=== PATIENT | female | born 1960 | race African-American/Black ===

== ENCOUNTER → 2017-04-20 | Emergency (ER) | payer SELFPAY ==
[~2017-04-20] VITALS: Ht 162.6 cm; Wt 99.8 kg
[~2017-04-20] MED LIST: ASPIRIN81 MG PO; KETOROLAC TROMETHAMINE 60 MG/2 ML VIAL IM ONE; LISINOPRIL-HCT1 EACH PO; PRAVASTATIN SOD10 MG PO; SERTRALINE HCL50 MG PO; ZONISAMIDE100 MG PO
== END | disposition home or self-care (01) ==
LOC: ER 14:12
DX: S43.422A Sprain of left rotator cuff capsule, initial encounter (principal); Y92.39 Other specified sports and athletic area as the place of occurrence of the external cause
CPT/HCPCS: 99282; J1885

== ENCOUNTER 2017-12-28 23:25 | Emergency (ER) | payer OTHER ==
[~2017-12-28] VITALS: Ht 162.6 cm; Wt 99.8 kg
[~2017-12-28 23:25] MED LIST changes: -KETOROLAC TROMETHAMINE 60 MG/2 ML VIAL IM ONE
[2017-12-29] MEDS ORDERED: KETOROLAC TROMETHAMINE 60 MG/2 ML VIAL ONE (01:09)
[2017-12-29] MEDS ORDERED: KETOROLAC TROMETHAMINE 60 MG/2 ML VIAL IM ONE (01:15)
--- OUTSIDE RECORDS SUMMARY | 2018-01-06 11:51 | XMS REPORT | Summary of Care ---
Author Organization Unknown Address Unknown Phone Unavailable Encounter HQ Santiagontr_jenaro(CHRISTY) [id number] Date(s): 11/30/13 - 12/29/13 [facility] Discharge Disposition: Home Physician Attending: Allyson Mustafa MD Reason for Visit RT HAND PAIN/724.3 LT UPPER THIGH PAIN Problem List No data available for this section Allergies, Adverse Reactions, Alerts Substance Reaction Severity Status NKDA Active Medications No data available for this section Medications Administered During Your Visit No data available for this section Immunizations No data available for this section
--- OUTSIDE RECORDS SUMMARY | 2018-01-06 11:52 | XMS REPORT | Summary of Care ---
Author Author [facility] [place] [facility] Organization [facility] [place] [facility] Address Unknown Phone Unavailable Encounter HQ Encntr_alias(FIN) [id number] Date(s): 01/16/16 - 01/16/16 [facility] [place] [facility] [address] [place] [address], [address] [place] [address]- [place] [phone] Discharge Disposition: Home or Self Care Attending Physician: Lashell Houston MD Vital Signs No data available for this section Problem List No data available for this section Allergies, Adverse Reactions, Alerts Substance Reaction Severity Status NKDA Active Medications No data available for this section Results No data available for this section Immunizations No data available for this section Procedures No data available for this section Social History No data available for this section Assessment and Plan No data available for this section
--- OUTSIDE RECORDS SUMMARY | 2018-01-06 11:52 | XMS REPORT ---
Author Author [facility] Address Unknown Phone Unavailable Care Team Providers Care Rn Referral Name Role Phone Dariana MORALES Unavailable Unavailable Trevon APARICIO Unavailable Unavailable Problems This patient has no known problems. Allergies, Adverse Reactions, Alerts This patient has no known allergies or adverse reactions. Medications This patient has no known medications. Results Test Description Test Time Test Comments Text Results Atomic Results Result Comments CT BRAIN WO [place] [address] Patient Name: PRAKASH DELUCA MR #: [id number] : 1960 Age/Sex: 56/F Req #: [id number] Adm Physician: Ordered by: CLEMENTINE MORALES MD Report #: [id number] Location: ER Room/Bed: Procedure: [id number] CT/CT BRAIN WO Exam Date: Exam Time: REPORT STATUS: Signed History: Headache Comparison studies: None Technique: Axial images were obtained from the skull base to the vertex. Coronal and sagittal reconstructions obtained from the axial data. Findings: Scalp/skull: No abnormalities. No fractures, blastic or lytic lesions. Extra-axial spaces: No masses. No fluid collections. Brain sulci: Appropriate for age. Ventricles: Normal in size and configuration. No hydrocephalus. Parenchyma: No abnormal densities. No masses, hemorrhage, acute or chronic cortical vascular insults. Sellar/suprasellar region: No abnormalities Craniocervical junction: Patent foramen magnum. No Chiari one malformation. IMPRESSION: No abnormalities. Signed by: Dr. Rashad Alexander M.D. on 01/05/2017 6:06 PM Dictated By: RASHAD ALEXANDER MD, MD Elect ronically Signed By: RASHAD ALEXANDER MD, MD on 01/05/171805 Transcribed By: DAMIAN on 01/05/171805 COPY TO: CLEMENTINE MORALES MD SHOULDER LEFT COMPLETE [place] [address] Patient Name: PRAKASH DELUCA MR #: [id number] : 1960 Age/Sex: 56/F Req #: [id number] Adm Physician: Ordered by: SHERIDAN APARICIO MD Report #: [id number] Location: ER Room/Bed: Procedure: [id number] DX/SHOULDER LEFT COMPLETE Exam Date: 12/08/16 Exam Time: 0125 REPORT STATUS: Signed EXAM: SHOULDER LEFT COMPLETE, AP internal and external rotational view DATE: 12/08/2016 12:58 AM Time stamp on Exam: 0111 hours INDICATION: Left shoulder pain COMPARISON: None FINDINGS: BONES: No acute fractures. No lytic or blastic lesions. Calcification adjacent to the posterior superior aspect of the humeral head. JOINTS: The joints are well-maintained and without erosive changes. No malalignment. SOFT TISSUES: Normal IMPRESSION: No left shoulder fracture or dislocation. Calcific tendinopathy. Signed by: Dr. Nano Bentley M.D. on 12/08/2016 1:46 AM Dictated By: NANO BENTLEY MD 5 Transcribed By: DAMIAN on 12/08/16145 COPY TO: SHERIDAN APARICIO MD
--- OUTSIDE RECORDS SUMMARY | 2018-01-06 11:52 | XMS REPORT | Summary of Care ---
Author Author OPAL Cassidy, OMAR Organization Unknown Address Unknown Phone Unavailable Care Team Providers Care Manager Animation Name Role Phone OPAL Cassidy, OMAR Unavailable Unavailable Omar Joseph MD Unavailable Unavailable Unavailable Unavailable Functional Status Name Dates Details Functional status health issues are not documented Status: Name Dates Details Cognitive status health issues are not documented Status: Problems Name Dates Details Back Pain Status: Active Headache (784.0, R51) Status: Active Snoring (786.09, R06.83) Status: Active Backache (724.5, M54.9) Status: Active Cerebral thrombosis with cerebral infarction (434.01, I63.30) Status: Active Meralgia paresthetica of left side (355.1, G57.12) Status: Active Sciatica (724.3, M54.30) Status: Active Neuralgia (729.2, M79.2) Status: Active Cyst of left breast (610.0, N60.02) Status: Active Medication refill (V68.1, Z76.0) Status: Active Breast cyst (610.0, N60.09) Status: Active Perimenopausal (627.2, N95.1) Status: Active Atypical chest pain (786.59, R07.89) Status: Active Pleuritic chest pain (786.52, R07.81) Status: Active Pain, hip (719.45, M25.559) Status: Active Upper respiratory infection, acute (465.9, J06.9) Status: Active Normal routine physical examination (V70.0, Z00.00) Status: Active Need for Tdap vaccination (V06.1, Z23) Status: Active Colon cancer screening (V76.51, Z12.11) Status: Active Arm pain, anterior, right (729.5, M79.601) Status: Active Alterations of sensations (782.0, R20.9) Status: Active Primary hypertension (401.9, I10) Status: Active Dyslipidemia (272.4, E78.5) Status: Active Neck pain (723.1, M54.2) Status: Active Essential hypertension (401.9, I10) Status: Active Encounter for routine gynecological examination with Papanicolaou smear of cervix (V72.31, Z01.419) Status: Active Acute bronchitis (466.0, J20.9) Status: Active Hot flashes (782.62, R23.2) Status: Active Anxiety (300.00, F41.9) Status: Active Stroke syndrome Status: Active Medications Name Dates Details Aspirin 81 MG TABS TAKE 1 TABLET DAILY. R.N. Active Pravastatin Sodium 10 MG Oral Tablet TAKE 1 TABLET BY MOUTH EVERY NIGHT AT BEDTIME * Quantity: 30 Refills: 0 OPAL Balderas.OMAR Gupta * Start : 27-Oct-2017 Active Sertraline HCl - 50 MG Oral Tablet TAKE 1 TABLET BY MOUTH ONCE DAILY * Quantity: 30 Refills: 0 OPAL Balderas.D., OMAR * Start : 27-Oct-2017 Active Lisinopril-Hydrochlorothiazide 20-12.5 MG Oral Tablet TAKE 1 TABLET BY MOUTH ONCE DAILY * Quantity: 30 Refills: 0 OPAL Balderas.Candy, OMAR * Start : 27-Oct-2017 Active Ibuprofen 800 MG Oral Tablet TAKE 1 TABLET EVERY 6 HOURS PRN * Refills: 0 R.N. * Start : 13-Nov-2016 Active Allergies and Adverse Reactions Name Dates Details No Known Allergies (Allergy) Status: Active Past Medical History Name Dates Details History of Anxiety (300.00, F41.9) Status: Resolved History of Common migraine without aura (346.10, G43.009) Status: Resolved History of essential hypertension (V12.59, Z86.79) Status: Resolved History of stroke (V12.54, Z86.73) Status: Resolved Procedures Procedure Dates Details History of Biopsy Breast Percutaneous Needle Core Completed History of Complete Colonoscopy Completed Immunization Name Dates Details Tdap (Adacel) Lot #: [id number] on: 07-Apr-2015 Family History Name Dates Details Family history of Hypertension (V17.49) Comments: Family History Status: Active Name Dates Details Family history of diabetes mellitus (V18.0, Z83.3) Status: Active Name Dates Details Family history of essential hypertension (V17.49, Z82.49) Status: Active Name Dates Details Family history of cerebrovascular accident (V17.1, Z82.3) Status: Active Name Dates Details Family history of malignant neoplasm of breast (V16.3, Z80.3) Status: Active Name Dates Details Family history of essential hypertension (V17.49, Z82.49) Status: Active Family history of type 2 diabetes mellitus (V18.0, Z83.3) Status: Active Family history of cerebrovascular accident (V17.1, Z82.3) Status: Active Social History Name Dates Details - Status: Name Dates Details Never smoker Vital Signs Date Test Result Details No Known Vitals to report Results Date Description Value Details Results not documented Plan of Care Name Dates Details Planned Observations Planned Goals not documented Interventions Provided Medication Changes* Lisinopril-Hydrochlorothiazide 20-12.5 MG Oral Tablet - Renew * Pravastatin Sodium 10 MG Oral Tablet - Renew * Sertraline HCl - 50 MG Oral Tablet - Renew Instructions Name Dates Details Instructions not documented Encounters Appointment; OMAR JOSEPH M.D. Encounter Diagnosis: Problem not documented On: 03-Nov-2015 15:15 Appointment; OMAR JOSEPH M.D. Encounter Diagnosis: Problem not documented On: 12-Jan-2016 14:45 Appointment; OMAR JOSEPH M.D. Encounter Diagnosis: Problem not documented On: 15-Mar-2016 14:30 Appointment; OMAR JOSEPH M.D. Encounter Diagnosis: Problem not documented On: 13-Nov-2016 15:15
--- OUTSIDE RECORDS SUMMARY | 2018-01-06 11:52 | XMS REPORT | Summary of Care ---
Author Organization Unknown Address Unknown Phone Unavailable Encounter HQ Encntr_jenaro(CHRISTY) [id number] Date(s): 04/07/14 - 04/07/14 [facility] Outpatient Imaging [address] Discharge Disposition: Home Physician Attending: John Jacobs MD Reason for Visit 610.0 - SOLITARY CYST O Problem List No data available for this section Allergies, Adverse Reactions, Alerts Substance Reaction Severity Status NKDA Active Medications No data available for this section Medications Administered During Your Visit No data available for this section Immunizations No data available for this section
== END 2017-12-29 01:49 | disposition home or self-care (01) ==
LOC: ER 23:25
DX: M79.651 Pain in right thigh (principal); S76.111A Strain of right quadriceps muscle, fascia and tendon, initial encounter
CPT/HCPCS: 99282; J1885

== ENCOUNTER 2018-08-23 09:37 | Emergency (ER) | payer OTHER ==
[~2018-08-23] VITALS: Ht 162.6 cm; Wt 100.7 kg
--- OUTSIDE RECORDS SUMMARY | 2018-08-23 09:40 | XMS REPORT | Continuity of Care Document ---
Author Author Steve roxann Organization Interface Address Unknown Phone Unavailable Problems Problem Status Onset Date Classification Date Reported Comments Source 610.0 - SOLITARY CYST O Active 03/28/2014 [facility] 719.46 - JOINT PAIN-L/LE Active 11/18/2013 NAD[facility] Rueda RT HAND PAIN/724.3 LT UPPER THIGH PAIN Active [facility] Medications Medication Details Route Status Patient Instructions Ordering Provider Order Date Source Allergies, Adverse Reactions, Alerts Substance Category Reaction Severity Reaction type Status Date Reported Comments Source Immunizations Immunization Date Given Site Status Last Updated Comments Source Results Order Name Results Value Reference Range Date Interpretation Comments Source Spine cervical 2 or 3 view DX Spine cervical 2 or 3 view DX EXAM: XR CERVICAL SPINE 2 VIEWS DATE: 01/16/2016 2:46 PM CDT INDICATION: pain, no trauma COMPARISON: None available TECHNIQUE: AP and lateral radiographs of the cervical spine - 2 views FINDINGS: No spondylolisthesis present. Vertebral body heights are normal. No cervical spine fracture is identified. Mild degenerative disc disease present at C4-C5, C5-C6. Uncovertebral joint hypertrophy present at C4-C5. No prevertebral soft tissue edema or hematoma is observed. IMPRESSION: Degenerative disc disease and uncovertebral joint hypertrophy. 01/16/2016 - - Read by: Brian Pham MD Dictated Date/time: 01/17/16 14:24 Electronically Signed by: Brian Pham MD 01/17/16 14:27 FINAL REPORT [facility] US Breast Uni MA US Breast Uni MA - US BREAST UNI MA/L ULTRASOUND OF LEFT BREAST AND LEFT AXILLA: 2014 CLINICAL: Cyst. Comparison is made to exam dated: 2014 mammogram - [facility] Outpatient Imaging Department. Color flow and real-time ultrasound of the left breast and axilla were performed. There is a benign 1.2 cm round simple cyst in the left breast at 12 o'clock middle depth 1 cm from the nipple. This round simple cyst is anechoic with posterior acoustic enhancement. This correlates as an incidental finding. Color flow imaging demonstrates that there is no vascularity present. No abnormalities were seen sonographically in the left axilla. There are no discrete cystic or solid masses present to correspond to the area of palpable concern. IMPRESSION: BENIGN The area of palpable concern should be managed clinically. There is no sonographic evidence of malignancy. The 1.2 cm round simple cyst in the left breast is benign. Return to annual mammogram screening schedule is recommended. SUMMARY: These findings were discussed with the patient at the time of examination. The patient brought CD for upload. These will be reviewed when they become available. Adam hunt/penrad:2014 16:06:13 De Icer Kit Assembler: Mrs. russel roche, [facility] Outpatient Imaging Department This exam was dictated and interpreted by [id number] for [facility]. letter sent: Bilateral Benign Ultrasound BI-RADS: 2 Benign 2014 - - Read by: Adam Martínez MD PHD Dictated Date/time: 04/07/14 16:06 Electronically Signed by: Adam Martínez MD PHD 04/07/14 16:06 FINAL REPORT [facility] Digital Mammo DX Anaya MA Digital Mammo DX Anaya MA - DIGITAL MAMMO DX ANAYA MA BILATERAL DIGITAL DIAGNOSTIC MAMMOGRAM WITH CAD: 2014 CLINICAL: 610.0 Cyst Of Breast. Current study was evaluated with a Computer Aided Detection (CAD) system. No prior exams were available for comparison. The tissue of both breasts is heterogeneously dense, which could obscure detection of small masses. The patient states recent palpable area in the left breast (UOQ). No corresponding mammographic abnormality seen. An ultrasound is recommended for further evaluation. There is a biopsy clip in the left breast. No significant masses, calcifications, or other findings are seen in either breast. IMPRESSION: INCOMPLETE: NEEDS ADDITIONAL IMAGING EVALUATION An ultrasound of the left breast is recommended for further evaluation of the patient's palpable abnormality. SUMMARY: Ultrasound will be performed at this time; please see separate report. The patient brought CD for upload. These will be reviewed when they become available. Adam hunt/penrad:2014 16:05:27 De Icer Kit Assembler: Sydnee HESS(Humphrey)(M), [facility] Outpatient Imaging Department This exam was dictated and interpreted by [id number] for [facility]. Mammogram BI-RADS: 0 Indeterminate 2014 - - Read by: Adam Martínez MD PHD Dictated Date/time: 04/07/14 16:05 Electronically Signed by: Adam Martínez MD PHD 04/07/14 16:05 FINAL REPORT [facility] Vital Signs Vital Sign Value Date Comments Source Encounters Location Location Details Encounter Type Encounter Number Reason For Visit Attending Provider ADM Date DC Date Status Source [facility] OP Therapy Patients [id number] Allyson Bedgood 11/30/2013 12/30/2013 [facility] [place] [facility] [id number] John Jacobs 2014 04/08/2014 NADINE Rueda [facility] [place] [facility] [id number] Lashell Houston 01/16/2016 01/17/2016 [facility] Procedures Procedure Code Date Perfomer Comments Source
== END 2018-08-23 09:57 | disposition left against medical advice (07) ==
LOC: ER 09:37
DX: R42 Dizziness and giddiness (principal)

== ENCOUNTER 2018-10-31 12:26 | Emergency (ER) | payer SELFPAY ==
[~2018-10-31] VITALS: Ht 162.6 cm; Wt 100.7 kg
--- OUTSIDE RECORDS SUMMARY | 2018-10-31 12:30 | XMS REPORT | Continuity of Care Document ---
Author Author Divshot Organization [facility] [employer] Address Unknown Phone Unavailable Care Team Providers Care Bumper Operator Name Role Phone [facility] [employer] Information [email or web address] Unavailable Unavailable Problems Problem Status Onset Date Classification Date Reported Comments Source 610.0 - SOLITARY CYST O Active 03/28/2014 [employer] 719.46 - JOINT PAIN-L/LE Active 11/18/2013 [employer] [facility] RT HAND PAIN/724.3 LT UPPER THIGH PAIN Active [facility] Medications No Data Provided for This Section Allergies, Adverse Reactions, Alerts No Known Medication Allergies Immunizations No Data Provided for This Section Results No Data Provided for This Section Pathology Reports No Data Provided for This Section Diagnostic Reports Report Value Date Source Spine cervical 2 or 3 view [...] disc disease and uncovertebral joint hypertrophy. 01/16/2016 [facility] [place] [facility] US Breast Uni MA - US BREAST UNI MA/L ULTRASOUND OF LEFT BREAST AND LEFT AXILLA: 2014 CLINICAL: Cyst. Comparison is made to exam dated: 2014 mammogram - [facility] Outpatient Imaging Department. Color flow and real-time [...] when they become available. Adam hunt/penrad:2014 16:06:13 Stamping Die Maker: Dominic russel roche, [facility] Outpatient Imaging Department This exam was dictated and interpreted by [id number] for [facility]. letter sent: Bilateral Benign Ultrasound BI-RADS: 2 Benign 2014 [facility] Digital Mammo DX Anaya MA - DIGITAL [...] be reviewed when they become available. Adam hunt/floyd:2014 16:05:27 Stamping Die Maker: Sydnee PAGAN)(Andrey), [facility] Outpatient Imaging Department This exam was dictated and interpreted by [id number] for [facility]. Mammogram BI-RADS: 0 Indeterminate 2014 [facility] Consultation Notes No Data Provided for This Section Discharge Summaries No Data Provided for This Section History and Physicals No Data Provided for This Section Vital Signs No Data Provided for This Section Encounters Location Location Details Encounter Type Encounter Number Reason For Visit Attending Provider ADM Date DC Date Status Source [facility] OP Therapy Patients [id number] Allyson Darbyrebekah 11/30/2013 12/30/2013 [facility] [place] [facility] [id number] John Jacobs 2014 04/08/2014 NADINE Rueda [facility] Outpatient [facility] - [place] [facility] [id number] Lashell Houston 01/16/2016 01/17/2016 [facility] Procedures No Data Provided for This Section Assessment and Plan No Data Provided for This Section Plan of Care No Data Provided for This Section Social History Social History Date Source No data available for this section 01/17/2016 [facility] Family History No Data Provided for This Section Advance Directives No Data Provided for This Section Functional Status No Data Provided for This Section
== END 2018-10-31 13:00 | disposition left against medical advice (07) ==
LOC: ER 12:26
DX: M25.511 Pain in right shoulder (principal)

== ENCOUNTER 2021-01-18 01:26 | Emergency (ER) | payer BC, OTHER ==
[~2021-01-18] VITALS: Ht 162.6 cm; Wt 100.7 kg
[2021-01-18] MEDS ORDERED: SODIUM CHLORIDE 0.9% 1000ML 1,000 ML IV SCH (01:45)
[2021-01-18] MEDS ORDERED: DIPHENHYDRAMINE HCL INJ 50 MG/ML VIAL IV STA (01:45)
[2021-01-18] MEDS ORDERED: METOCLOPRAMIDE HCL 10 MG/2ML VIAL IV ONE (01:45)
[2021-01-18] MEDS ORDERED: KETOROLAC TROMETHAMINE 30 MG/ML VIAL IV STA (01:45)
[2021-01-18 02:56] VITALS: BP 143/81
== END 2021-01-18 02:58 | disposition home or self-care (01) ==
LOC: ER 02:11
DX: R51.9 Headache, unspecified (principal); I10 Essential (primary) hypertension; Z86.73 Personal history of transient ischemic attack (TIA), and cerebral infarction without residual deficits
CPT/HCPCS: 99283; J1200; J1885; J2765; J7030

== ENCOUNTER 2023-02-20 10:11 | Emergency (ER) | payer BC, OTHER ==
[~2023-02-20] VITALS: Ht 162.6 cm; Wt 106.6 kg
[2023-02-20 10:51] VITALS: O2SAT 97
== END 2023-02-20 11:45 | disposition home or self-care (01) ==
LOC: ER 10:15
DX: F41.9 Anxiety disorder, unspecified (principal); I10 Essential (primary) hypertension; E11.9 Type 2 diabetes mellitus without complications; Z86.73 Personal history of transient ischemic attack (TIA), and cerebral infarction without residual deficits
CPT/HCPCS: 93005; 99283

== ENCOUNTER 2024-12-02 07:22 | Emergency (ER) | payer OTHER ==
[~2024-12-02] VITALS: Ht 162.6 cm; Wt 104.3 kg
[2024-12-02 07:25] VITALS: TEMP 97.9
[2024-12-02] MEDS: HYDROCODONE/APAP 5MG-325MG TAB PO ONE (08:16)
[2024-12-02] MEDS: DEXAMETHASONE SOD PHOS 10 MG/1 ML VIAL IM ONE (08:17)
[2024-12-02] MEDS ORDERED: ULTRAM 50MG50 MG PO (08:19)
[2024-12-02] MEDS ORDERED: MEDROL4 M2 PO (08:19)
[2024-12-02 08:21] VITALS: PULSE 79; RESP 16; O2SAT 98
== END 2024-12-02 08:40 | disposition home or self-care (01) ==
LOC: ER 07:25
DX: M54.31 Sciatica, right side (principal); I10 Essential (primary) hypertension; F41.9 Anxiety disorder, unspecified; Z86.73 Personal history of transient ischemic attack (TIA), and cerebral infarction without residual deficits
CPT/HCPCS: 99282; J1100

== ENCOUNTER 2024-12-31 21:00 | Emergency (ER) | payer OTHER ==
[~2024-12-31] VITALS: Ht 162.6 cm; Wt 104.3 kg
[~2024-12-31 21:00] MED LIST changes: +MEDROL4 M2 PO; +ULTRAM 50MG50 MG PO
[2024-12-31 21:50] VITALS: PULSE 97; RESP 18; TEMP 97.6; O2SAT 98
[2024-12-31 22:52] LABS: BASOPHILS % 0.7 % (0.0-1.0); EOSINOPHILS % 0.9 % (0.0-6.0); LYMPHOCYTES % 18.5 % (18.0-39.1); MONOCYTES % 9.7 % (4.4-11.3); NEUTROPHILS % 69.9 % (38.7-80.0); RED CELL DISTRIBUTION WIDTH 15.2 % (11.7-14.4)
[2024-12-31 23:03] LABS: LEUKOCYTE ESTERASE ,URINE NEGATIVE (NEGATIVE); PROTEIN,URINE DIPSTICK NEGATIVE (NEGATIVE); URINE UROBILINOGEN 1 mg/dL (0.2 - 1)
[2024-12-31 23:04] LABS: EST GLOMERULAR FILTRATION RATE 75.0 ML/MIN (>=60)
[2024-12-31 23:05] LABS: WBC,URINE (MAN) 0-5 /HPF (0-5)
[2024-12-31 23:06] LABS: EPITHELIAL CELLS,URINE RARE /LPF
== END 2025-01-01 02:31 | disposition left against medical advice (07) ==
LOC: ER 01-01 00:13
DX: R10.9 Unspecified abdominal pain (principal)
CPT/HCPCS: 36415; 80053; 81001; 85025